=== PATIENT | female | born 1975 | race Caucasian/White ===

== ENCOUNTER 2016-10-30 19:48 | Emergency (ER) ==
--- NOTE | 2016-10-30 23:37 | PROVIDER DOCUMENTATION ---
HPI-General Adult - General Chief Complaint: Anxiety Stated Complaint: STRESSOUT/ANIEXTY Time Seen by Provider: 10/30/16 23:22 Source: patient Allergies/Adverse Reactions: Patient Allergies Allergy/AdvReac Type Severity Reaction Status Date / Time No Known Allergies Allergy Verified 10/30/16 19:59 Home Medications: Home Medication List Medication Instructions Recorded Confirmed Last Taken Type Alprazolam [Xanax] 0.25 mg PO TID PRN #10 tablet 10/30/16 Unknown Rx - History of Present Illness -Gen Adult Nature of Presenting Problems: 41 year old F presents to the ED with a cc of anxiety. PT states that she has been stressed out a lot lately and has not been able to function. Pt states that she was seen at Urgent Care 2 different times for panic attacks. Pt states that she was prescribed Xanax one time and Buspar the other. PT states that she was seen by PCP and states that she will not prescribe them for her. PT states that she is on Prozac and has been for 5 months. Pt states that it is not helping any more. Pt states that she had another episode this afternoon. Location of Pain/Injury: reports: none Pain Radiation: reports: no radiation Quality of Pain: reports: none Severity: reports: mild Onset/Duration: reports: this afternoon Timing: reports: still present Context/Activities at Onset: reports: none Associated Symptoms: reports: anxiety Similar Symptoms Previously?: Yes Recently seen or treated by another doctor?: No Review of Systems - Adult - REVIEW OF SYSTEMS - ADULT Constitutional: denies: chills, fever Eyes: reports: no symptoms reported Ears, Nose, Mouth & Throat: reports: no symptoms reported Cardiovascular: denies: chest pain, palpitations Respiratory: denies: cough, shortness of breath Gastrointestinal: reports: no symptoms reported Genitourinary: reports: no symptoms reported Musculoskeletal: reports: no symptoms reported Integumentary: reports: no symptoms reported Neurological: reports: no symptoms reported Psychiatric: reports: anxiety. denies: suicidal thoughts Endocrine: reports: no symptoms reported Hematologic/Lymphatic: reports: no symptoms reported Allergic/Immunologic: reports: no symptoms reported All Other Systems: Reviewed and Negative Past History - Adult - PAST MEDICAL HISTORY-ADULT Review of Records: reports: Nursing Assessment Review, Medications Reviewed Major Childhood Illnesses: reports: denies history Psychiatric: reports: anxiety, depression - IMMUNIZATION STATUS Childhood Immunizations: See Nurse Assessment Flu Vaccine: See Nurse Assessment - SOCIAL HISTORY Smoking: non-smoker Substance Use: none/never Alcohol Use Frequency: never Physical Exam-General - PHYSICAL EXAM-ADULT Initial Vital Signs Reviewed: Yes - CONSTITUTIONAL General Appearance: alert, anxious - RESPIRATORY Respiratory: chest non-tender, lungs clear, normal breath sounds - CARDIOVASCULAR Cardiovascular: normal peripheral pulses, regular rate, rhythm, no edema - GASTROINTESTINAL (ABDOMEN) Abdominal Exam: non tender, soft - MUSCULOSKELETAL Extremity: normal inspection - SKIN Integumentary: normal color, normal turgor, warm/dry - PSYCHIATRIC Psych/Mental Status: oriented x 3, anxious Progress - PLAN OF CARE/RESULTS Progress/Plan/Lab Results: Vital Signs - 24 hr 10/30/16 19:54 Temperature 98.1 F Pulse Rate 70 Respiratory 22 Rate Blood Pressure 129/76 O2 Sat by Pulse 100 Oximetry Pt given results and will be d/c home w/ rx to follow up with PCP. Pt verbally understood instructions. PT remained clinically stable throughout the course of the ED stay and will return if symptoms worsen. Departure - Departure Additional Instructions: ED Follow Up Instructions: You have been treated by a care provider in the Emergency Department. These instructions are being provided to you so you can have an understanding of how to care for yourself upon discharge. Upon discharge from the Emergency Department, you are responsible for making arrangements for follow-up care by a physician of your choice. Take all prescribed medications as directed. Return to the Emergency Department immediately for any new or worsening symptoms. You may call the Physician Referral phone number at [phone] to obtain a list of Physicians who are taking new patients. Prescriptions: Alprazolam [Xanax] 0.25 mg PO TID PRN #10 tablet PRN Reason: Anxiety Referrals: Polly Knight CRNP [Primary Care Provider] - Forms: Return to School/Parent Work Instructions: Alprazolam tablets Attestation - Scribe Verification/Attestation Scribe:: Cherri Kern Acting as Scribe for:: Ashish Santana Scribe documention review:: This chart was documented by a scribe and accurately reflects the service the provider performed and the decisions made by the provider. Physician Attestation - Physician Attestation I, the provider, attest to the following statement:: Ashish Santana Physician documentation Attestation:: This documentation recorded by the scribe accurately reflects the service I personally performed and the decisions made by me.
[2016-10-30 23:53] VITALS: BP 124/77
== END 2016-10-30 23:51 | disposition home or self-care (01) ==
LOC: P.ED 19:48
DX: F41.9 Anxiety disorder, unspecified (principal)
CPT/HCPCS: 99281